=== PATIENT | female | born 1985 | race Caucasian/White ===

== ENCOUNTER 2016-12-21 08:57 | Emergency (ER) | payer BC ==
--- NOTE | 2016-12-21 09:07 | UC ---
Lower Extremity/Ankle HPI - HPI Summary HPI Summary: 31 YEAR OLD FEMALE PRESENTS WITH LEFT FOOT INJURY - History of Current Complaint Stated Complaint: LEFT FOOT INJURY Time Seen by Provider: 12/21/16 08:58 Hx Last Menstrual Period: 05/30/13 Onset/Duration: Sudden Onset Severity Initially: Moderate Severity Currently: Moderate - Allergies/Home Medications Allergies/Adverse Reactions: Allergies Allergy/AdvReac Type Severity Reaction Status Date / Time No Known Allergies Allergy Verified 12/21/16 09:19 PMH/Surg Hx/FS Hx/Imm Hx - Surgical History Surgical History: None - Social History Substance Use Type: None Review of Systems Constitutional: Negative Skin: Negative Eyes: Negative ENT: Negative Respiratory: Negative Cardiovascular: Negative Gastrointestinal: Negative Genitourinary: Negative Motor: Negative Neurovascular: Negative Musculoskeletal: Other: - MIDDLE TOE PAIN Neurological: Negative Psychological: Negative All Other Systems Reviewed And Are Negative: Yes Physical Exam Triage Information Reviewed: Yes Eye Exam: Normal ENT Exam: Normal Dental Exam: Normal Neck exam: Normal Neck: Positive: 1 Respiratory Exam: Normal Cardiovascular Exam: Normal Abdominal Exam: Normal Musculoskeletal Exam: Normal Musculoskeletal: Positive: Other: - LEFT FOOT (MIDDLE TOE) PAIN Neurological Exam: Normal Psychological Exam: Normal Skin Exam: Normal Lower Extremity Course/Dx - Differential Dx/Diagnosis Provider Diagnoses: LEFT FOOT PAIN. LEFT MIDDLE TOE PAIN Discharge - Discharge Plan Condition: Good Disposition: HOME Prescriptions: Meloxicam [Mobic] 15 mg PO Q24HR #30 tab Patient Education Materials: Foot Sprain (ED) Referrals: Carlene Shultz PA [Primary Care Provider] -
[2016-12-21 09:19] VITALS: BP 120/74
--- NOTE | 2016-12-21 09:30 | RAD ---
HISTORY: Left foot injury, medial left foot pain COMPARISONS: None VIEWS: 3, Frontal, lateral, and oblique views of the left foot FINDINGS: BONE DENSITY: Normal. BONES: There is no displaced fracture. There are calcaneal enthesophytes. JOINTS: There is no arthropathy. ALIGNMENT: There is no dislocation. SOFT TISSUES: Unremarkable. OTHER FINDINGS: None. IMPRESSION: NO ACUTE OSSEOUS INJURY. IF SYMPTOMS PERSIST, RECOMMEND REPEAT IMAGING.
== END 2016-12-21 10:03 | disposition home or self-care (01) ==
LOC: UCCORT 08:57
DX: M79.675 Pain in left toe(s) (principal)
CPT/HCPCS: 99212; G0463